=== PATIENT | male | born 1960 | race Caucasian/White ===

== ENCOUNTER 2017-06-01 02:24 | Emergency (ER) | payer OTHER ==
[~2017-06-01] VITALS: Ht 190.5 cm; Wt 145.4 kg
[2017-06-01 02:24] VITALS: BP 220/90; PULSE 88; RESP 20; TEMP 99.3; O2SAT 96
[2017-06-01] MEDS ORDERED: MORPHINE SULFATE 4 MG/ML INJ IV PUSH ONE ×2 (02:45→05:15)
[2017-06-01] MEDS ORDERED: KETOROLAC TROMETHAMINE 30 MG/ML (IVP) VIAL IV PUSH ONE (02:45)
[2017-06-01] MEDS ORDERED: ONDANSETRON HCL 4 MG/2 ML VIAL IV PUSH ONE (02:45)
[2017-06-01] MEDS ORDERED: LIDOCAINE 1%/EPINEPHrine 1:100,000 SOLN 20 ML VIAL INFIL ONE (02:45)
--- NOTE | 2017-06-01 02:48 | PD ---
HPI Chief Complaint: Musculoskeletal Complaint Time Seen by Provider: 02:41 Travel History International Travel<30 days: No Contact w/Intl Traveler<30days: No Traveled to known affect area: No History of Present Illness HPI The patient is a 56-year-old male who presents to the emergency department via EMS for right knee pain. The patient has a history of gout, notes increasing swelling and pain to the right knee since Thursday night. The patient has been on colchicine, indomethacin, and steroids in the past. The patient states his best relief came from the Medrol Dosepak. He notes limited range of motion and difficulty ambulating on the leg secondary to pain and swelling. He denies any erythema of the affected area denies any fever, chills , or sweats. 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 Symptoms are moderate, exacerbated by history of gout, there are no current alleviating factors. He denies any trauma to the right knee. 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 Social History Tobacco Use: No Allergies-Medications (Allergen,Severity, Reaction): Coded Allergies: No Known Allergies (Unverified , 06/01/17) Reported Meds & Prescriptions Reported Meds & Active Scripts Active [place] (Hydrocodone-Acetaminophen) 5 Mg-325 Mg Tab 1 Tab PO Q6H PRN Medrol Dosepak (Methylprednisolone) 4 Mg Dspk 4 Mg PO DIRECTED Per Pharmacist direction Reported Aspirin Low Dose (Aspirin) 81 Mg Chew 81 Mg CHEW HS Crestor (Rosuvastatin Calcium) 20 Mg Tab 20 Mg PO HS Amlodipine (Amlodipine Besylate) 5 Mg Tab 5 Mg PO HS Bystolic (Nebivolol) 20 Mg Tab 20 Mg PO HS Uloric (Febuxostat) 40 Mg Tab 1 Tab PO HS Losartan (Losartan Potassium) 100 Mg Tab 100 Mg PO HS Percocet (Oxycodone-Acetaminophen) 7.5-325 mg Tab 1 Tab PO Q4H PRN Review of Systems Except as stated in HPI: all other systems reviewed are Neg General / Constitutional: No: Fever, Chills Musculoskeletal: Positive: Limited ROM, Edema, Pain Skin: No Rash Neurologic: No: Paresthesia, Sensory Disturbance Physical Exam Narrative GENERAL: Awake, alert, 56-year-old male who appears his stated age and is in no acute respiratory distress. SKIN: Focused skin assessment warm/dry. HEAD: Atraumatic. Normocephalic. EYES: No injection or drainage. ENT: No nasal bleeding or discharge. Mucous membranes pink and moist. NECK: Trachea midline. No JVD. CARDIOVASCULAR: Regular rate and rhythm. No murmur appreciated. RESPIRATORY: No accessory muscle use. Clear to auscultation. Breath sounds equal bilaterally. GASTROINTESTINAL: Abdomen soft, non-tender, nondistended. Morbidly obese. MUSCULOSKELETAL: Right knee has a positive effusion, mild tenderness over the effusion. Patient is able to flex the right knee approximately 45. No erythema overlying the affected area, but slightly warm to touch. NEUROLOGICAL: Awake and alert. No obvious cranial nerve deficits. Motor grossly within normal limits. Normal speech. PSYCHIATRIC: Appropriate mood and affect; insight and judgment normal. Data Data Last Documented VS Vital Signs Date Time Temp Pulse Resp B/P (MAP) Pulse Ox O2 Delivery O2 Flow Rate FiO2 06/01/17 05:46 06/01/17 05:21 81 18 94 Room Air 06/01/17 04:13 99.2 Orders Orders Synovial Fl Cell Count + Diff (06/01/17 02:41) Synovial Fluid Crystals (06/01/17 02:41) Synovial Fluid Glucose (06/01/17 02:41) Synovial Fluid Total Protein (06/01/17 02:41) Morphine Inj (Morphine Inj) (06/01/17 02:45) Ondansetron Inj (Zofran Inj) (06/01/17 02:45) Ketorolac Inj (Toradol Inj) (06/01/17 02:45) Lidocai-Epi 1%-1:100,000 Inj (Xylocaine- (06/01/17 02:45) Fluid Culture And Gram Stain (06/01/17 04:20) Morphine Inj (Morphine Inj) (06/01/17 05:15) Ed Discharge Order (06/01/17 05:13) Labs Laboratory Tests Test 06/01/17 03:58 Synovial Fluid Color YELLOW Synovial Fluid Appearance MARKED Synovial Fluid WBC 76633 /MM3 Synovial Fluid RBC 275 /MM3 Synovial Fluid Neutrophils 97 % Synovial Fluid Lymphocytes 2 % Synovial Fluid Monocytes 1 % Synovial Fluid Crystals POS - URIC ACID MDM Medical Decision Making Medical Screen Exam Complete: Yes Emergency Medical Condition: Yes Medical Record Reviewed: Yes Interpretation(s) Laboratory Tests Test 06/01/17 03:58 Synovial Fluid Color YELLOW Synovial Fluid Appearance MARKED Synovial Fluid WBC 89916 /MM3 Synovial Fluid RBC 275 /MM3 Synovial Fluid Neutrophils 97 % Synovial Fluid Lymphocytes 2 % Synovial Fluid Monocytes 1 % Synovial Fluid Crystals POS - URIC ACID Date/Time Source Procedure Growth Status 06/01/17 03:58 Fluid Synovial Fluid Gram Stain - Final Resulted 06/01/17 03:58 Fluid Synovial Fluid Body Fluid Culture Pending Resulted Differential Diagnosis Differential diagnosis includes gout, pseudogout, septic knee, hemarthrosis, effusion, arthritis. Narrative Course A bedside ultrasound was performed with a linear probe which reveals a large effusion of the right knee. I had a discussion with the patient regarding arthrocentesis, he is agreeable. The right knee was draped and prepped in the normal sterile fashion, cleaned with Betadine, anesthetized 1% lidocaine with epinephrine using a 27-gauge needle and under ultrasound guidance an 18-gauge needle was placed into the effusion and drained. Fluid from the synovium was sent to lab for analysis. The patient received morphine, Zofran, and Toradol for his pain. The patient's pain did improve. Gram stain and synovial studies were pending. Apparently they were going to take several hours at [place], I confirmed his cell phone number and I will review his results tonight. If the culture is positive or there appears to be an infection I will call him and have him return to [facility]. The patient is comfortable with this plan of care. Procedures Procedure Narrative A bedside ultrasound was performed with a linear probe which reveals a right knee effusion. Patient tolerated the procedure without difficulty. There is no obvious complications. An arthrocentesis of the right knee was performed. The area was draped and prepped with Betadine, the area was anesthetized with 1% lidocaine with epinephrine using a 27-gauge needle. Using the linear probe on the ultrasound, I inserted an 18-gauge needle superior and lateral to the patella, I had cloudy yellow aspiration fluid, I removed 40 cc. There is no obvious complications. The patient had a dry sterile dressing applied afterwards. The patient tolerated the procedure without difficulty. Diagnosis Primary Impression: Effusion, right knee Additional Impression: Arthropathy of right knee Patient Instructions: General Instructions Additional Instructions: Medications as directed. Follow-up with your primary physician. Return if symptoms worsen or progress. Med/Other Pt SpecificInfo: Prescription(s) given Scripts Hydrocodone-Acetaminophen ([place]) 5 Mg-325 Mg Tab 1 TAB PO Q6H Y for PAIN, #15 TAB 0 Refills Prov: Hans Das MD 06/01/17 Methylprednisolone Dosepak (Medrol Dosepak) 4 Mg Dspk 4 MG PO DIRECTED, #1 DSPK 0 Refills Per Pharmacist direction Prov: Hans Das MD 06/01/17 Disposition: 01 DISCHARGE HOME Condition: Stable Hans Das MD Jun 01, 2017 02:48
[2017-06-01 03:18] VITALS: BP 203/80; PULSE 82; RESP 18; O2SAT 97
[2017-06-01] MEDS ORDERED: LOSA100T PO (03:25)
[2017-06-01] MEDS ORDERED: PERC7.5T13 PO (03:25)
[2017-06-01] MEDS ORDERED: ROSU20 PO (03:25)
[2017-06-01] MEDS ORDERED: NEBI20 PO (03:25)
[2017-06-01] MEDS ORDERED: ULOR40TA PO (03:25)
[2017-06-01] MEDS ORDERED: AMLO5TAB2 PO (03:25)
[2017-06-01] MEDS ORDERED: ASPI81CH6 CHEW ×2 (03:25)
[2017-06-01] MEDS ORDERED: MEDR4PAK PO (04:04)
[2017-06-01] MEDS ORDERED: NORC5TAB PO (04:04)
[2017-06-01 04:13] VITALS: BP 193/69; PULSE 81; RESP 18; TEMP 99.2; O2SAT 96
[2017-06-01 05:21] VITALS: BP 173/82; PULSE 81; RESP 18; O2SAT 94
[2017-06-01 05:28] LABS: WBC, SYNOVIAL FLUID 18450 /MM3 (0-200)
== END 2017-06-01 05:47 | disposition home or self-care (01) ==
LOC: PHED 02:24
DX: M25.461 Effusion, right knee (principal); M12.9 Arthropathy, unspecified; I10 Essential (primary) hypertension; E78.5 Hyperlipidemia, unspecified; Z86.718 Personal history of other venous thrombosis and embolism
CPT/HCPCS: 20611; 82945; 84157; 87070; 87205; 89051; 89060; 96374; 96375; 96376; 99284; J1885; J2270; J2405

== ENCOUNTER → 2017-06-23 | Outpatient (CLI) | payer OTHER ==
[~2017-06-23] MED LIST: AMLO5TAB2 PO; ASPI-516 CHEW; ASPI81CH6 CHEW; LOSA100T PO; MEDR4PAK PO; NEBI20 PO; NORC5TAB PO; PERC7.5T13 PO; ROSU20 PO; ULOR40TA PO
[2017-06-23 08:47] LABS: HEMATOCRIT 39.5 % (39.0-51.0); HEMOGLOBIN 13.2 GM/DL (13.0-17.0); MEAN CELL VOLUME 87.3 FL (80.0-100.0); MEAN CORPUSCULAR HEMOGLOBIN 29.3 PG (27.0-34.0); MEAN CORPUSCULAR HGB CONC 33.5 % (32.0-36.0); PLATELET COUNT 216 TH/MM3 (150-450); RED BLOOD COUNT 4.52 MIL/MM3 (4.50-5.90); RED CELL DISTRIBUTION WIDTH 14.5 % (11.6-17.2); WHITE BLOOD COUNT 6.1 TH/MM3 (4.0-11.0)
--- NOTE | 2017-06-23 15:21 | EKG ---
Date Performed: 06/23/2017 Time Performed: 08:43:27 PTAGE: 56 years EKG: SINUS BRADYCARDIA MINIMAL VOLTAGE CRITERIA FOR LVH, CONSIDER NORMAL VARIANT BORDERLINE ECG NO PREVIOUS TRACING DOCTOR: Harvey Devi Interpretating Date/Time 06/23/2017 15:17:39
== END ==
LOC: CPRE 08:15
PROVIDERS: ATTEND Orthopaedic Surgery
DX: Z01.810 Encounter for preprocedural cardiovascular examination (principal); Z01.812 Encounter for preprocedural laboratory examination; M23.241 Derangement of anterior horn of lateral meniscus due to old tear or injury, right knee; M22.41 Chondromalacia patellae, right knee; M17.11 Unilateral primary osteoarthritis, right knee; M21.061 Valgus deformity, not elsewhere classified, right knee
CPT/HCPCS: 36415; 85027; 93005

== ENCOUNTER → 2017-06-25 | Day surgery (SDC) | payer OTHER ==
[~2017-06-25] VITALS: Ht 190.5 cm; Wt 155.9 kg
[~2017-06-25] MED LIST changes: +*morphine SULFATE 8 MG/ML PERIprocedure ONLY ONE; +ACETAMINOPHEN/HYDROcodone 325 MG/5 MG TAB PO PRN; -ASPI81CH6 CHEW; +BUPIVACAINE/EPINEPHRINE 0.25% 50 ML VIAL ONE; +CHLORHEXIDINE GLUCONATE 2 % 1 PACK (2 CLOTHS) TOPICAL PRN; +DEXAMETHASONE SOD PHOS 4 MG/ML VIAL IV ONE; +DO NOT ADM ANY ANTICOAGULANT DRUGS PRN; +GLYCOPYRROLATE 1 MG/5 ML SYRINGE IV PUSH ONE; +LACTATED RINGER'S 1000 ML INJ 1,000 ML IV ONE; +LACTATED RINGER'S 1000 ML IV PRN; +LIDOCAINE HCL 1% PF 5 ML SYRINGE OTHER ONE; -MEDR4PAK PO; +METOPROLOL TARTRATE 25 MG TAB PO PRN; +MORPHINE SULFATE 4 MG/ML INJ IV PUSH PRN; -NORC5TAB PO; +ONDANSETRON HCL 4 MG/2 ML VIAL IV ONE; +ONDANSETRON HCL 4 MG/2 ML VIAL IV PUSH PRN; +POVIDONE IODINE 5% (ANTISEPSIS KIT) 4 APPLICATIONS EACH NARE PRN; +PROPOFOL 200 MG/20 ML AMP IV ONE; +ROCURONIUM INJ 50 MG/5 ML SYRINGE IV PUSH ONE; +SODIUM CHLORID 0.9% 500 ML IV PRN; +ceFAZolin INJ 1,000 MG VIAL IV ONE; +ceFAZolin INJ 1,000 MG VIAL ONE; +ePHEDrine/NS 25 MG/5 ML SYRINGE IV ONE
--- NOTE | 2017-06-25 08:39 | PD.OP ---
Operative Report Date of Surgery: Jun 25, 2017 Preoperative Diagnosis: (1) Acute medial meniscus tear of right knee (2) Internal derangement of right knee Postoperative Diagnosis: (1) Internal derangement of right knee (2) Tophaceous gout (3) Acute medial meniscus tear of right knee (4) Synovitis of right knee (5) Chondromalacia, right knee Procedure: Arthroscopic surgery right knee with medial meniscectomy and synovectomy with multiple compartment chondral shave. Anesthesia: General endotracheal with supplemental local. Surgeon: Jaden Sykes MD Cnc Specialist(s): EVELYNE Dickerson Operation and Findings: Operative findings: 1. The suprapatellar pouch had diffuse synovitis with some occasional loose bodies. The synovitis was villous and there were crystalline areas within the villi and in the synovium. 2. The patellofemoral joint showed grade 3 change in the trochlea with grade 2- 3 change in the patella. There was crystalline material covering multiple areas of the articular cartilage and within the articular cartilage. Patellar tracking was relatively normal. 3. The medial compartment had a tear of the posterior horn of the medial meniscus largely peripheral and some near the root but not detaching the root. There was crystalline material in the meniscus and in the articular cartilage on both sides. There was grade 3 change in the medial femoral condyle and some grade 2-3 change in the medial tibial plateau. 4. In the intercondylar notch the anterior and posterior cruciate ligaments appeared normal and functioned normally. Additionally, there was significant synovitis with large tophaceous deposits and hypertrophic synovial debris with calcific or crystalline deposits. 5. In the lateral compartment, the meniscus meniscus was intact. The femoral condyle and tibial plateau were normal other than a diffuse irregular coating of crystalline material. The meniscus also had crystalline material. In the lateral gutter, there was some crystalline material with the popliteus hiatus being normal. No loose bodies were identified in this area. Procedure: The patient was brought to the operating room and a general anesthetic was administered. He was placed in a supine position with the affected leg in the leg hopkins. The leg was then prepped with alcohol, Hibiclens and ChloraPrep and draped in the usual manner with the knee draped free. An appropriate timeout procedure was carried out. Local anesthesia was administered and each incision prior to making the incision. Through stab wound in the anterior lateral parapatellar tendon and infrapatellar approach of scope cannula was introduced using a blunt obturator. The knee was distended with lactated Ringer solution and irrigated well. A needle was introduced from anterior medial to the linea proper as placement. A stab wound was made. A probe was introduced. Full examination was completed. Attention was directed to the medial compartment. In the medial compartment the medial meniscus was debrided with a shaver and basket forceps. The shaver was then used for smoothing the articular surface of the femur and tibia and for debriding the medial compartment synovitis and synovial cysts. In the intercondylar notch the anterior cruciate ligament and posterior cruciate ligament were protected as a synovectomy was carried out and the tophaceous deposits were removed. In the lateral compartment there was no need for any surgical intervention. Attention was directed to the patellofemoral joint. In this area the patella and trochlea were shaved removing loose articular debris and bring this to a stable margin. Attention was also directed to the suprapatellar pouch where a synovectomy was carried out removing the hypertrophic synovial areas and proliferative synovial areas. The tophi were removed as were the loose bodies. The knee was then irrigated well with lactated Ringer solution after a recheck was done in all compartments. A needle was introduced. The fluid was evacuated from the knee. The knee was anesthetized intra-articularly in each of the stab wounds with a total of 30 mL of Marcaine 0.25% with epinephrine. That which was injected into the joint cells was diluted to 0.125%. The wounds were then dressed with Steri-Strips followed by dry dressing, ABD pad and Arnoldo bandage. The leg was removed from the leg hopkins. The patient was transferred from the operating room to the recovery room in satisfactory condition having tolerated the procedure well. Counts were correct. Specimens: None. Aroldo Sykes MD (Charles) Jun 25, 2017 08:39
[2017-06-25 09:45] VITALS: BP 152/79; PULSE 71; RESP 18; TEMP 98; O2SAT 95
== END | disposition home or self-care (01) ==
LOC: PHSDC 05:36
PROVIDERS: ATTEND Orthopaedic Surgery
DX: S83.241A Other tear of medial meniscus, current injury, right knee, initial encounter (principal); M94.261 Chondromalacia, right knee; M1A.9XX1 Chronic gout, unspecified, with tophus (tophi); I10 Essential (primary) hypertension
CPT/HCPCS: 01400; 29881; J0690; J1100; J2270; J2405; J7120